=== PATIENT | male | born 1980 | race Caucasian/White ===

== ENCOUNTER → 2022-10-13 10:53 | Outpatient (CLI) | payer MEDICAID, SELFPAY ==
--- NOTE | 2022-10-13 10:53 | CT_ITS ---
FINAL REPORT TECHNIQUE: Axial CT images were performed from the lung apices through the upper abdomen. Coronal reformats were submitted. This study was performed with techniques to keep radiation doses as low as reasonably achievable (ALARA). Individualized dose reduction techniques using automated exposure control or adjustment of mA and/or kV according to the patient's size were employed. CLINICAL HISTORY: Esophagus thickening FINDINGS: There is diffuse esophageal wall thickening which is nonspecific, favor inflammatory. There is no axillary adenopathy. There is no hilar or mediastinal mass or adenopathy. Heart size is normal. There is no pericardial or pleural effusion. Limited images of the upper abdomen are unremarkable. No suspicious infiltrate or nodule is identified on lung window images. IMPRESSION: Nonspecific diffuse esophageal wall thickening, favor inflammatory. If indicated, upper endoscopy could further evaluate. Reviewed, Interpreted and Dictated by Laci Ceballos III, MD Transcribed by Magaly Rodriguez Authenticated and [facility]
== END ==
PROVIDERS: PCP Family Medicine; Visit Provider Family Medicine
DX: K22.89 Other specified disease of esophagus (principal)
CPT/HCPCS: 71250

== ENCOUNTER → 2022-11-02 23:16 | Outpatient (CLI) | payer MEDICAID, SELFPAY ==
[2022-11-02 19:57] LABS: Basophils % 0.3 % (0.1-2.0); Eosinophils # 0.1 K/mm3 (0.0-0.4); Eosinophils % 1.4 % (0.1-12.0); Hematocrit 46.5 % (42.0-52.0); Hemoglobin 15.3 g/dL (14.1-18.0); Lymphocytes # 2.5 K/mm3 (0.7-4.5); Mean Corpuscular HGB Conc 32.9 g/dL (31.8-35.4); Mean Corpuscular Hemoglobin 29.3 pg (27.0-31.2); Mean Corpuscular Volume 88.9 fl (80-94); Mean Platelet Volume 8.4 fl (7.4-10.4); Monocytes # 0.5 K/mm3 (0.1-1.0); Neutrophils % 61.2 % (37.0-80.0); Platelet Count 372 K/mm3 (142-424); Red Blood Count 5.23 M/mm3 (4.60-6.20); Red Cell Distribution Width 14.1 % (11.5-17.5); White Blood Count 8.2 K/mm3 (4.8-10.8)
[2022-11-02 20:41] LABS: Alanine Aminotransferase 17 U/L (12-78); Albumin Level 4.6 g/dl (3.5-5.0); Albumin/Globulin Ratio 1.6 (1.1-1.8); Anion Gap 19.9 mEq/L (5-15); Aspartate Amino Transferase 24 U/L (17-59); Blood Urea Nitrogen 15 mg/dl (9-20); Carbon Dioxide 28 mmol/L (22.0-30.0); Chloride 96 mmol/L (98-107); Estimated Glomerular Filt Rate 93 ml/min (>60); GFR (African American) 112 ML/MIN (>60); Globulin 2.8 g/dL (1.3-3.2); Glucose 87 mg/dl (74-100); Potassium 3.9 mmoL/L (3.5-5.1); Sodium 140 mmol/L (136-145); Total Protein,Serum 7.4 g/dl (6.3-8.2)
[2022-11-02 21:01] LABS: Erythrocyte Sedimentation Rate 8 mm/hr (0-15)
[2022-11-02 21:34] LABS: Alkaline Phosphatase 93 U/L (38-126); Bilirubin,Total 0.5 mg/dl (0.2-1.3)
[2022-11-04 17:15] LABS: RA Latex Turbid. <10.0 IU/mL (<14.0)
[2022-11-12 04:09] LABS: Rheumatoid Factor IGA < 7 U (<7); Rheumatoid Factor IGM < 7 U (<7)
== END ==
PROVIDERS: PCP Family Medicine; Visit Provider Family Medicine
DX: M25.50 Pain in unspecified joint (principal)
CPT/HCPCS: 80053; 85025; 85651; 86140; 86431

== ENCOUNTER 2022-11-30 12:19 | Day surgery (SDC) | payer MEDICAID, SELFPAY ==
[2022-11-30 12:45] VITALS: BMI 31.6
[2022-11-30 12:47] VITALS: BP 144/78; PULSE 94; RESP 19; TEMP 36.7; O2SAT 96
--- NOTE | 2022-11-30 12:53 | SUR.PREOP ---
pt reports having a seizure 11/23/22 Jhoan Vera CRNA aware
--- NOTE | 2022-11-30 13:02 | HMH.SCOPE ---
Procedure: Date: 11/30/22 Patient Date of :: 1980 Procedure Performed:: Esophagogastroduodenoscopy with biopsy Indications:: Dysphagia Reflux Nausea Upper abdominal pain Performing Provider:: Nilesh Contreras MD Referring Provider:: Dr. Castro Sedation:: Monitored anesthesia care Procedure:: After informed consent was obtained the patient was taken to the endoscopy suite. Sedation ensued after the patient was transferred to the left lateral decubitus position. Pulse, blood pressure, and oxygen saturation were monitored throughout the procedure. The endoscope was advanced beyond the duodenal bulb. Retroflexion within the gastric lumen was accomplished. The gastroscope was carefully removed and the patient was transferred to recovery in stable condition. Please see findings and specimens below for detail. Findings:: Distal esophageal spasm Gastroesophageal junction at 41 cm No mucosal stricture Minimal gastritis Specimens:: Antral biopsy Recommendations:: Follow-up pathology Barium swallow warranted Continue proton pump inhibition May ultimately benefit from repeat esophagogastroduodenoscopy with dilatation (await results of barium swallow) May benefit from medical management of esophageal spasm (often of minimal benefit) Complications:: No immediate Estimated blood obtained (mL): 1
[2022-11-30 13:10] VITALS: O2SAT 96
[2022-11-30 13:30] VITALS: BP 129/79; PULSE 103; RESP 16; TEMP 36.1; O2SAT 92
[2022-11-30 13:40] VITALS: BP 136/83; PULSE 109; RESP 18; O2SAT 94
--- NOTE | 2022-11-30 13:43 | EXP.ANES.CKL ---
[facility] Disclaimer: The information contained in this section may have been updated after the patient was seen, as this information can be updated by other users. Medical History Anxiety Chest mass Chronic back pain Depression Frequent headaches H/O degenerative disc disease Hiatal hernia Seizures Spinal stenosis Surgical History History of back surgery History of spinal surgery Family History (Updated 11/30/22 @ 12:38 by Trudi Giraldo RN) Other Family history of diabetes mellitus type II Family history of hypertension Social History (Updated 11/30/22 @ 12:40 by Trudi Giraldo RN) Smoking Status: Never smoker alcohol intake: never substance use type: denies use current occupational status: unemployed Travel in the last 8 weeks: None [facility] Anesthesia Checklist Patient Identification Patient Identification: Arm Band Structural Data Admitted From: Home Planned Operative Procedure/s: EGD Consent for Planned Operative Procedure(s) Verified: Yes Verified Documents: Surgical Consent and History and Physical NPO Status Verified Time NPO: 00:00 Additional verifications Anesthesia Reactions: No Airway Assessment C-Spine Mobility Assessed: Yes TMJ Mobility Assessed: Yes Dentition: Good Dentition Neurological Assessment Level of Consciousness: Awake and Alert Anesthesia Plan Anesthesia Risk discussed: Yes Anesthesia Plan: Verified ASA Class: II Anesthesia Type: MAC
[2022-11-30 13:50] VITALS: BP 143/78; PULSE 102; RESP 18; O2SAT 96
== END 2022-11-30 13:59 | disposition home or self-care (01) ==
PROVIDERS: PCP Family Medicine; Visit Provider Surgery
PROC: 0DJ08ZZ Inspection of Upper Intestinal Tract, Via Natural or Artificial Opening Endoscopic (ICD-10-PCS; CPT 43235; principal; 2022-11-30 13:30)
DX: R13.10 Dysphagia, unspecified (principal); K21.9 Gastro-esophageal reflux disease without esophagitis; R11.0 Nausea; K29.70 Gastritis, unspecified, without bleeding
CPT/HCPCS: 43239

== ENCOUNTER → 2023-01-19 09:26 | Outpatient (CLI) | payer MEDICAID, SELFPAY ==
--- NOTE | 2023-01-19 09:29 | FL_ITS ---
FINAL REPORT CLINICAL HISTORY: . BURNING WITH DRINKING, DYSPHAGIA 58 SECONDS FLUORO TIME FINDINGS: BARIUM SWALLOW HISTORY: Dysphagia, burning with the drinking. TECHNIQUE: The patient ingested barium contrast. Spot and overhead films were performed. A total of 31 images were saved. FINDINGS: There is a very small sliding-type hiatal hernia. There is no gastroesophageal reflux demonstrated. No mucosal defects are seen. There is mild esophageal dysmotility. No changes of esophagitis are evident. 13 mm barium tablet passes easily through the esoophagus and into the stomach. FLUOROSCOPY TIME: 58 seconds IMPRESSION: Mild esophageal dysmotility. Very small sliding-type hiatal hernia. Otherwise, unremarkable barium swallow. Reviewed, Interpreted and Dictated by Mulugeta Bailey MD Transcribed by Sade Ayala PA-C Authenticated and [facility]
== END ==
PROVIDERS: PCP Family Medicine; Visit Provider Surgery
DX: R13.10 Dysphagia, unspecified (principal)
CPT/HCPCS: 74220

== ENCOUNTER → 2023-06-06 11:52 | Outpatient (CLI) | payer MEDICAID, SELFPAY ==
[2023-06-09 11:00] LABS: Basophils # 0.1 K/mm3 (0-0.2); Basophils % 0.5 % (0.1-2.0); Eosinophils # 0.2 K/mm3 (0.0-0.4); Eosinophils % 1.4 % (0.1-12.0); Hematocrit 43.7 % (42.0-52.0); Hemoglobin 14.3 g/dL (14.1-18.0); Lymphocytes # 2.6 K/mm3 (0.7-4.5); Lymphocytes % 23.7 % (10-50); Mean Corpuscular HGB Conc 32.7 g/dL (31.8-35.4); Mean Corpuscular Hemoglobin 30.2 pg (27.0-31.2); Mean Corpuscular Volume 92.3 fl (80-94); Monocytes # 0.4 K/mm3 (0.1-1.0); Monocytes % 3.7 % (1.7-9.3); Neutrophils # 7.8 K/mm3 (1.8-7.8); Neutrophils % 70.7 % (37.0-80.0); Platelet Count 314 K/mm3 (142-424); Red Blood Count 4.74 M/mm3 (4.60-6.20); Red Cell Distribution Width 13.7 % (11.5-17.5)
[2023-06-09 11:37] LABS: Erythrocyte Sedimentation Rate 6 mm/hr (0-15)
[2023-06-09 11:55] LABS: Alanine Aminotransferase 15 U/L (12-78); Alkaline Phosphatase 121 U/L (38-126); Aspartate Amino Transferase 17 U/L (17-59); Bilirubin,Total 0.4 mg/dl (0.2-1.3); Blood Urea Nitrogen 15 mg/dl (9-20); Estimated Glomerular Filt Rate 82 ml/min (>60); GFR (African American) 99 ML/MIN (>60)
[2023-06-09 11:56] LABS: Albumin Level 4.3 g/dl (3.5-5.0); Albumin/Globulin Ratio 1.7 (1.1-1.8); Calcium 8.7 mg/dl (8.4-10.2); Carbon Dioxide 28 mmol/L (22.0-30.0); Globulin 2.5 g/dL (1.3-3.2); Glucose 97 mg/dl (74-100); Total Protein,Serum 6.8 g/dl (6.3-8.2)
[2023-06-09 12:28] LABS: Thyroid Stimulating Hormone 1.74 uIU/mL (0.465-4.68)
[2023-06-09 16:35] LABS: Anion Gap 8.4 mEq/L (5-15); Chloride 108 mmol/L (98-107); Potassium 4.4 mmoL/L (3.5-5.1); Sodium 140 mmol/L (136-145)
[2023-06-09 17:44] LABS: Vitamin B12 196 pg/mL (239-931)
[2023-06-09 17:50] LABS: Folate 3.97 ng/mL
== END ==
PROVIDERS: PCP Specialist; Visit Provider Specialist
DX: F11.90 Opioid use, unspecified, uncomplicated (principal); G40.909 Epilepsy, unspecified, not intractable, without status epilepticus; R55 Syncope and collapse; R63.4 Abnormal weight loss; Z68.27 Body mass index [BMI] 27.0-27.9, adult
CPT/HCPCS: 80053; 80177; 82607; 82746; 84443; 85025; 85651

== ENCOUNTER → 2023-06-09 09:22 | Outpatient (CLI) | payer MEDICAID, SELFPAY | PROVIDERS: PCP Family Medicine; Visit Provider Specialist | DX: G40.909 Epilepsy, unspecified, not intractable, without status epilepticus (principal) | CPT/HCPCS: 95819 ==

== ENCOUNTER 2023-06-28 13:20 | Outpatient (CLI) | payer MEDICAID, SELFPAY ==
[2023-06-28 18:48] LABS: Amphetamine/Metha Screen,Urine Negative ng/ml (<1000); Barbiturates Screen,Urine Negative ng/ml (<200); Benzodiazepines Screen,Urine Negative ng/ml (<200); Cannabinoid Screen,Urine Positive ng/ml (<50); Cocaine Screen,Urine Negative ng/ml (<300); Methadone Screen,Urine Negative ng/ml (<300); Opiate Screen,Urine Negative ng/ml (<300); Phencyclidine Screen,Urine Negative ng/ml (<25)
[2023-06-30 13:11] LABS: Antiparietal Cell Antibody 12.1 Units (0.0-20.0)
== END 2023-06-28 23:59 ==
LOC: LAB 13:21
PROVIDERS: PCP Family Medicine; Visit Provider Specialist
DX: E53.8 Deficiency of other specified B group vitamins (principal); F11.90 Opioid use, unspecified, uncomplicated; R55 Syncope and collapse; R56.9 Unspecified convulsions; R63.4 Abnormal weight loss; Z68.27 Body mass index [BMI] 27.0-27.9, adult
CPT/HCPCS: 36415; 80307; 83516; 86340

== ENCOUNTER 2023-07-05 11:33 | Outpatient (CLI) | payer MEDICAID, SELFPAY | END 2023-07-05 23:59 | LOC: RT 11:34 | PROVIDERS: PCP Family Medicine; Visit Provider Specialist | DX: I95.1 Orthostatic hypotension (principal); R55 Syncope and collapse; G93.40 Encephalopathy, unspecified | CPT/HCPCS: 93270 ==

== ENCOUNTER 2023-07-07 08:32 | Outpatient (CLI) | payer MEDICAID, SELFPAY ==
--- NOTE | 2023-07-07 08:33 | MR_ITS ---
FINAL REPORT CLINICAL HISTORY: Seizures 18ml prohance injected FINDINGS: Multiplanar MR imaging of the brain was performed without and with contrast. There is no evidence of intracranial hemorrhage or mass. No abnormal extra-axial fluid collection is seen. The ventricular size is within normal limits. There is no evidence of shift of the midline structures. The posterior fossa and brainstem have an unremarkable appearance. No area of abnormal restricted diffusion is identified. No abnormal contrast enhancement is seen. Normal major vessel vascular flow voids are noted. There is a retention cyst or polyp in the left sphenoid sinus. IMPRESSION: No acute intracranial abnormality identified. Reviewed, Interpreted and Dictated by Laci Ceballos III, MD Transcribed by Magaly Rodriguez Authenticated and [facility]
[2023-07-07] MEDS: GADOTERIDOL INJ 17ML SYRINGE 18 ML IV (09:22)
[2023-07-07] MEDS: SODIUM CHLORIDE 0.9% 10ML SYR (RAD ONLY) 10 ML IV (09:22)
== END 2023-07-07 23:59 ==
LOC: RAD 08:33
PROVIDERS: PCP Specialist; Visit Provider Specialist
DX: G40.909 Epilepsy, unspecified, not intractable, without status epilepticus (principal)
CPT/HCPCS: 70553; A9576

== ENCOUNTER → 2023-07-21 12:40 | Day surgery (SDC) | payer MEDICAID, SELFPAY ==
[2023-07-21 12:53] VITALS: BP 127/75; PULSE 72; RESP 18; TEMP 36.7; O2SAT 97
--- NOTE | 2023-07-21 13:30 | EXP.TILT ---
Findings:: PROCEDURE: Upright Tilt Table Test REQUESTING PROVIDER: Viki Purcell MD INDICATION: Syncope, possible seizure activity BETA BLOCKERS: None PRE-TEST VITAL SIGNS (supine position): BP 119/72, HR 65 bpm with NSR, O2Sats 97% PROCEDURE SUMMARY: Patient was prepped per protocol, IV started, connected to heart, blood pressure and oxygen monitors. Safety straps applied and patient was tilted upright at 70 degrees for a total of 30 minutes. During the test he had no significant symptoms, with no syncope, near syncope or lightheadedness. His blood pressure and heart rate remained stable, within normal and with minimal fluctuations during the test. Lowest blood pressure was 106/72 after 20 minutes upright, and maximum was 112/74 after 30 minutes upright. Minimum heart rate was 77 bpm and maximum was 81 bpm. He remained in normal sinus rhythm throughout the test. Oxygen saturation was in the mid-90s throughout. CONCLUSIONS: Normal upright tilt table test.
== END | disposition home or self-care (01) ==
PROVIDERS: PCP Family Medicine; Visit Provider Internal Medicine
DX: R55 Syncope and collapse (principal); I95.1 Orthostatic hypotension
CPT/HCPCS: 93660

== ENCOUNTER 2024-05-01 09:00 | Outpatient (CLI) | payer MEDICAID, SELFPAY ==
--- NOTE | 2024-05-01 09:10 | XR_ITS ---
PROCEDURE INFORMATION: Exam: XR Right Elbow Exam date and time: 05/01/2024 9:25 AM Age: 43 years old Clinical indication: Pain; Elbow; Right; Additional info: Right elbow pain TECHNIQUE: Imaging protocol: Radiologic exam of the right elbow. Views: 3 or more views. COMPARISON: CR XR ELBOW RT MIN 3V 05/01/2024 9:25 AM FINDINGS: Bones/joints: No visible fracture or dislocation. No joint effusion Soft tissues: Normal. IMPRESSION: No visible fracture or dislocation.
--- NOTE | 2024-05-01 09:10 | XR_ITS ---
PROCEDURE INFORMATION: Exam: XR Left Elbow Exam date and time: 05/01/2024 9:25 AM Age: 43 years old Clinical indication: Pain; Elbow; Left; Additional info: Left elbow FX TECHNIQUE: Imaging protocol: Radiologic exam of the left elbow. Views: 3 or more views. COMPARISON: No relevant prior studies available. FINDINGS: Bones/joints: No visible fracture or dislocation. Soft tissues: Normal. IMPRESSION: No visible fracture or dislocation.
== END 2024-05-01 23:59 | disposition home or self-care (01) ==
LOC: RAD 09:03
PROVIDERS: PCP Family Medicine; Visit Provider Orthopaedic Surgery
DX: M25.521 Pain in right elbow (principal); M77.12 Lateral epicondylitis, left elbow
CPT/HCPCS: 73080

== ENCOUNTER 2024-05-18 14:28 | Outpatient (CLI) | payer MEDICAID, SELFPAY ==
--- NOTE | 2024-05-18 14:30 | MR_ITS ---
FINAL REPORT CLINICAL HISTORY: evalute C spine pain , numbness and tingling down bilateral arms since 2004 FINDINGS: Multiplanar MR imaging of the cervical spine was performed without contrast. There is magnetic susceptibility artifact associated with anterior interbody fusion hardware bridging C6-7. On the sagittal T2-weighted images, mildly decreased signal is seen throughout the cervical discs. There is mild loss of disc space height at C4-5 and C5-6. There is no evidence of fracture. The vertebral alignment is normal. The cervical spinal cord has an unremarkable appearance without evidence of mass, edema or syrinx. No significant canal stenosis is identified. The cervicomedullary junction is normal. C2-3: There is no significant canal stenosis or neural foraminal narrowing. C3-4: There is no significant canal stenosis or neural foraminal narrowing. C4-5: Mild diffuse disc bulge with endplate hypertrophy and moderate bilateral neuroforaminal narrowing. C5-6: Diffuse disc bulge with endplate hypertrophy and moderate bilateral neuroforaminal narrowing. C6-7: There is no significant canal stenosis or neural foraminal narrowing. C7-T1: There is no significant canal stenosis or neural foraminal narrowing. IMPRESSION: Diffuse disc bulges at C4-5 and C5-6 with neuroforaminal narrowing. Reviewed, Interpreted and Dictated by Ford Diza MD Transcribed by Cristela Kwan Authenticated and [facility]
== END 2024-05-18 23:59 | disposition home or self-care (01) ==
LOC: RAD 14:30
PROVIDERS: PCP Family Medicine; Visit Provider Physician Assistant Surgical
DX: M54.2 Cervicalgia (principal)
CPT/HCPCS: 72141

== ENCOUNTER 2024-07-10 14:36 | Outpatient (CLI) | payer MEDICAID, SELFPAY ==
--- NOTE | 2024-07-10 14:37 | MR_ITS ---
FINAL REPORT TECHNIQUE: Multiplanar MR without contrast was obtained of the right elbow. CLINICAL HISTORY: RT elbow pain popping in elbow when extending no injury or trauma posterior pain COMPARISON: None FINDINGS: Articular cartilage: Moderate to severe diffuse thinning compatible with degenerative change. Marrow signal pattern: Degenerative subchondral cysts of the capitellum. No significant changes of fracture or bone contusion. Joint: Small joint effusion without loose body. Ligaments: Medial and lateral collateral ligaments are intact. Tendons: Biceps and triceps tendons are unremarkable. Flexor tendons have a normal appearance. Mild extensor tendinosis and evidence of mild remote partial tear. IMPRESSION: Significant degenerative changes, particularly of the radiocapitellar joint. Chronic tendinosis of the extensor tendon with chronic appearing partial tear. No joint body. Reviewed, Interpreted and Dictated by Mulugeta Bailey MD Transcribed by Genia Medina Authenticated and [facility]
== END 2024-07-10 23:59 | disposition home or self-care (01) ==
LOC: RAD 14:37
PROVIDERS: PCP Family Medicine; Visit Provider Physician Assistant Surgical
DX: M77.11 Lateral epicondylitis, right elbow (principal)
CPT/HCPCS: 73221